=== PATIENT | male | born 1970 ===

== ENCOUNTER 2024-02-06 18:04 | Emergency (ER) | payer OTHER, SELFPAY ==
--- NOTE | ~2024-02-06 | XR_ITS ---
Examination: XR forearm LT 2V (accession [id number]), XR elbow LT min 3V (accession [id number]) Indication: pain, injury Comparison: No pertinent prior studies are currently available for comparison. Technique: 2 views of the left forearm and 3 views of the left elbow. Findings: Left elbow: No significant elbow joint effusion. Bones are normal anatomic alignment. There is subtle fracture through a posterior olecranon spur seen on the lateral view. There is mild soft tissue swelling in this location. No other acute bony abnormality within the elbow itself. Left forearm: No additional acute fracture or dislocation within the forearm. XR/XR elbow LT min 3V Impression: Subtle fracture through a posterior olecranon spur seen on the lateral view with associated soft tissue swelling. No other acute bony abnormality. Electronically signed by: Keshav Wild MD 02/06/2024 07:34 PM EDT Workstation: [id number]
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
--- NOTE | ~2024-02-06 | XR_ITS ---
Examination: XR forearm LT 2V (accession [id number]), XR elbow LT min 3V (accession [id number]) Indication: pain, injury Comparison: No pertinent prior studies are currently available for comparison. Technique: 2 views of the left forearm and 3 views of the left elbow. Findings: Left elbow: No significant elbow joint effusion. Bones are normal anatomic alignment. There is subtle fracture through a posterior olecranon spur seen on the lateral view. There is mild soft tissue swelling in this location. No other acute bony abnormality within the elbow itself. Left forearm: No additional acute fracture or dislocation within the forearm. XR/XR forearm LT 2V Impression: Subtle fracture through a posterior olecranon spur seen on the lateral view with associated soft tissue swelling. No other acute bony abnormality. Electronically signed by: Keshav Wild MD 02/06/2024 07:34 PM EDT
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
[2024-02-06 18:08] VITALS: BP 159/79; PULSE 103; RESP 16; TEMP 36.9; O2SAT 100; BMI 26.5
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
[2024-02-06 18:20] LABS: MANUAL DIFF FLAG NO
[2024-02-06 18:21] LABS: Basophils Absolute Auto 0.5 X10*3/uL (0.0-0.2); Basophils Percent Auto 2.4 % (0-2); Eosinophils Absolute Auto 1.5 X10*3/uL (0.0-0.4); Hematocrit 38.9 % (42.0-52.0); Hemoglobin 12.4 g/dl (14.0-18.0); Imm Gran Pct Auto 0.5 % (0.0-0.4); Lymphocytes Absolute Auto 1.6 X10*3/uL (1.2-4.9); Lymphocytes Percent Auto 8.4 % (20-40); Mean Corpuscular HGB Conc 31.9 g/dl (31.0-36.0); Mean Corpuscular Hemoglobin 23.2 pg (27.0-33.0); Mean Corpuscular Volume 72.8 fL (80.0-98.0); Mean Platelet Volume 11.3 fL (9.4-12.4); Monocytes Absolute Auto 0.9 X10*3/uL (0.1-1.2); Monocytes Percent Auto 4.6 % (2-11); Neutrophils Absolute Auto 14.5 x10*3/uL (2.0-8.3); Neutrophils Percent Auto 76.1 % (45-73); Platelet Count 347 X10*3/uL (160-400); Red Blood Count 5.34 X10*6/uL (4.60-5.80); Red Cell Distribution Width 13.8 % (11.0-16.0); White Blood Count 19.1 X10*3/uL (4.8-10.8)
[2024-02-06 18:24] VITALS: BP 178/83; PULSE 104; RESP 23; O2SAT 97
[2024-02-06 18:43] LABS: Alanine Aminotransferase 22 U/L (0-40); Albumin Level 4.1 g/dL (3.5-5.0); Alkaline Phosphatase 91 U/L (39-117); Anion Gap 14 (12-20); Aspartate Amino Transferase 34 U/L (5-37); Bilirubin Total 0.7 mg/dL (0.0-1.0); Blood Urea Nitrogen 12 mg/dL (9-16); Calcium 9.3 mg/dL (8.4-10.2); Carbon Dioxide 25 mmol/L (22-29); Chloride 103 mmol/L (96-108); Creatinine Clr Calc Pharmacy 85.3; Estimated Glomerular Filt Rate > 60; Glucose Random 148 mg/dL (60-115); Magnesium 1.7 mg/dL (1.6-2.6); Potassium 3.5 mmol/L (3.3-5.1); Sodium 138 mmol/L (135-145); Total Protein 8.1 g/dL (6.5-8.0)
[2024-02-06 20:31] VITALS: BP 174/79; PULSE 78; RESP 16; TEMP 37.3; O2SAT 98
--- NOTE | 2024-02-06 20:58 | PC.NURSE ---
Pt reporting headache, 03/10. T/w spoke with Tania VELASCO and verbal order for Tylenol.
[2024-02-06] MEDS: Acetaminophen 325 MG TABLET 975 MG PO (21:08)
[2024-02-06 21:50] VITALS: BP 139/57; PULSE 65; RESP 20; TEMP 37.2; O2SAT 96
[2024-02-06 23:09] VITALS: BP 116/90; PULSE 67; RESP 20; TEMP 37.5; O2SAT 98
[2024-02-06] MEDS: Ibuprofen 600 MG TABLET PO (23:13)
[2024-02-07 01:40] VITALS: BP 116/90; PULSE 67; RESP 20; TEMP 37.5; O2SAT 98
== END 2024-02-06 23:10 | disposition home or self-care (01) ==
PROVIDERS: Physician Assistant Medical; Emergency Provider Emergency Medicine
DX: S00.83XA Contusion of other part of head, initial encounter (principal); Y04.2XXA Assault by strike against or bumped into by another person, initial encounter; R51.9 Headache, unspecified; Y93.9 Activity, unspecified; Y92.480 Sidewalk as the place of occurrence of the external cause; Y99.9 Unspecified external cause status
CPT/HCPCS: 36415; 70450; 70486; 71250; 72125; 73080; 73090; 80053; 83735; 85025; 99284